=== PATIENT | male | born 1955 | race Caucasian/White ===

== ENCOUNTER 2017-01-11 18:36 | Emergency (ER) | payer BC ==
[2017-01-11 20:16] VITALS: BP 119/76
--- NOTE | 2017-01-11 20:40 | UC ---
Upper Extremity HPI - HPI Summary HPI Summary: 61 year old male with hand pain x 1 day. Right hand pain & swelling after being hit w/ a drill saw last night. No other concerns. [ End ] - History of Current Complaint Chief Complaint: UCUpperExtremity Stated Complaint: RIGHT HAND INJURY Time Seen by Provider: 01/11/17 20:16 Hx Obtained From: Patient, Family/Finishing Inspector Onset/Duration: Sudden Onset Severity Initially: Moderate Severity Currently: Moderate Character: Stiffness Aggravating Factor(s): Movement Alleviating Factor(s): Nothing Associated Signs And Symptoms: Positive: Negative - Allergies/Home Medications Allergies/Adverse Reactions: Allergies Allergy/AdvReac Type Severity Reaction Status Date / Time No Known Allergies Allergy Verified 01/11/17 20:08 Home Medications: Home Medications Diphenhydramine-Acetaminophen [Tylenol Pm Extra Strength 500-25 mg] 1 tab PO BEDTIME 01/11/17 [History Confirmed 01/11/17] FLUoxetine CAP* [PROzac CAP*] 10 mg PO DAILY 01/11/17 [History Confirmed ] Pantoprazole TAB (NF) [Protonix TAB (NF)] 40 mg PO DAILY 01/11/17 [History Confirmed 01/11/17] busPIRone TAB* [Buspar TAB*] 1 tab PO DAILY PRN 01/11/17 [History Confirmed ] PMH/Surg Hx/FS Hx/Imm Hx Previously Healthy: Yes GI/ History: Gastroesophageal Reflux Psychological History: Anxiety - Surgical History Surgical History: Yes Surgery Procedure, Year, and Place: gastric bypass 2009 - Social History Occupation: Employed Full-time Lives: With Family Alcohol Use: Occasionally Substance Use Type: None Smoking Status (MU): Never Smoked Tobacco Review of Systems Musculoskeletal: Decreased ROM, Edema, Myalgia All Other Systems Reviewed And Are Negative: Yes Physical Exam Triage Information Reviewed: Yes Appearance: Well-Appearing, No Pain Distress, Well-Nourished Vital Signs: Initial Vital Signs Temp 98.1 F 01/11/17 20:12 Pulse 67 01/11/17 20:12 Resp 16 01/11/17 20:12 BP 119/76 01/11/17 20:12 Pulse Ox 97 01/11/17 20:12 Vital Signs Reviewed: Yes Respiratory Exam: Normal Cardiovascular Exam: Normal Musculoskeletal: Positive: ROM Limited @ - diffuse swelling and tenderness to the right hand . FROM of the fingers. cap refill < 3 sec., Edema @ Neurological Exam: Normal Psychological Exam: Normal Skin: Positive: Other - swelling and ecchymosis on the right hand diffusely but fingers no involved. wrist normal to exam and FROM. peripheral pulses intact Upper Extremity Course/Dx - Course Course Of Treatment: placed in ulnar gutter by KAYLA thomas and f/u with ortho for further eval Dr Elias patient agreeable - Differential Dx/Diagnosis Differential Diagnosis/HQI/PQRI: Fracture (Closed), Strain, Sprain Provider Diagnoses: Hand fracture right Discharge - Discharge Plan Condition: Good Disposition: HOME Patient Education Materials: Hand Fracture (ED) Referrals: Moose Elias MD [Medical Doctor] - 5 Days (Hand Ortho referral ) Additional Instructions: You have been placed in a splint and are advise to wear this until you are seen by the orthopedic physician
--- NOTE | 2017-01-11 20:46 | RAD ---
INDICATION: Pain after trauma to right hand COMPARISON: None. TECHNIQUE: 4 views of the right hand were obtained. FINDINGS: There is a minimally displaced obliquely oriented fracture through the diaphysis of the right fifth metacarpal. Remaining visualized bones are intact and appropriately aligned. IMPRESSION: Minimally displaced fracture of the right fifth metacarpal.
== END 2017-01-11 21:13 | disposition home or self-care (01) ==
LOC: UCCORT 18:36
DX: S62.306A Unspecified fracture of fifth metacarpal bone, right hand, initial encounter for closed fracture (principal); W31.2XXA Contact with powered woodworking and forming machines, initial encounter; Y93.9 Activity, unspecified; Y92.9 Unspecified place or not applicable; K21.9 Gastro-esophageal reflux disease without esophagitis; F41.9 Anxiety disorder, unspecified; Z98.84 Bariatric surgery status
CPT/HCPCS: 26600; 99201; G0463